=== PATIENT | female | born 1980 | race Caucasian/White ===

== ENCOUNTER 2023-08-18 11:07 | Emergency (ER) | payer SELFPAY ==
[2023-08-18 11:19] VITALS: BP 163/103; PULSE 78; RESP 18; TEMP 97.1; BMI 42.7
[2023-08-18 12:06] LABS: BASO % 0.6 % (0-2.0); EOS % 4.9 % (0-4.5); HEMATOCRIT 37.6 % (32.4-45.2); HEMOGLOBIN 12.4 GM/dL (10.7-15.3); LYMPH % 36.7 % (8-40); MCH 26.9 pg (25.7-33.7); MCHC 33.1 g/dl (32.0-36.0); MEAN CELL VOLUME 81.3 fl (80-96); MEAN PLT VOLUME 7.3 fl (7.5-11.1); MONO % 6.2 % (3.8-10.2); NEUT % 51.6 % (42.8-82.8); PLATELET COUNT 303 10^3/uL (134-434); RBC 4.63 M/mm3 (3.60-5.2); RDW 14.7 % (11.6-15.6); WHITE BLOOD COUNT 6.9 K/mm3 (4.0-10.0)
[2023-08-18 12:29] LABS: POTASSIUM 3.6 mmol/L (3.5-5.1)
[2023-08-18 12:32] LABS: CALCIUM 8.8 mg/dL (8.5-10.1)
[2023-08-18 12:33] LABS: ALBUMIN 3.6 g/dl (3.4-5.0); BLOOD UREA NITROGEN 11.8 mg/dL (7-18)
[2023-08-18 12:36] LABS: CREATININE 0.6 mg/dL (0.55-1.3)
[2023-08-18 12:37] LABS: BILIRUBIN,TOTAL 0.5 mg/dL (0.2-1); TOT PROT 8.3 g/dl (6.4-8.2)
[2023-08-18] MEDS ORDERED: IBUPROFEN 400 MG TABLET (FP) PO ONE (15:42)
[2023-08-18] MEDS ORDERED: LIDOCAINE 4% PATCH TP ONE (15:42)
[2023-08-18] MEDS: IBUPROFEN 400 MG TABLET (FP) PO ONE (15:51)
[2023-08-18] MEDS: LIDOCAINE 5% TOPICAL PATCH TP ONE (15:51)
[2023-08-18] MEDS ORDERED: LIDOCAINE PATCH REMOVAL MC SCH (22:00)
== END 2023-08-18 16:34 | disposition home or self-care (01) ==
LOC: JER 11:07
DX: R07.89 Other chest pain (principal); M25.512 Pain in left shoulder; R50.9 Fever, unspecified; R05.9 Cough, unspecified; Z20.822 Contact with and (suspected) exposure to COVID-19
CPT/HCPCS: 0241U-QW; 36415; 71046-TC-FY; 71275-TC; 80053; 84484; 84703; 85025; 85379; 93005; 93010; 99285-25; Q9967